=== PATIENT | female | born 1975 | race Caucasian/White ===

== ENCOUNTER 2019-07-22 10:16 | Emergency (ER) | payer BC, SELFPAY ==
[2019-07-22 10:21] VITALS: BP 176/104; PULSE 59; RESP 17; O2SAT 99; BMI 45.0
--- NOTE | 2019-07-22 13:21 | ED_ITS ---
Entered by Drea Camacho, acting as scribe for Giovanni Barber DO Jul 22, 2019 10:16 HPI - Chest Pain General: Chief Complaint: Chest Pain Stated Complaint: CHEST PRESSURE AND H/A, DIZZY Time Seen by Provider: 07/22/19 13:20 History of Present Illness: HPI narrative: 44-year-old female presents with complaints of chest pain. She has had an intermittently for the last several days is not affected by movement has been affected a little bit by eating. Denies any radiation of the pain into the jaw little bit into the shoulder no pain into the back she has no diaphoresis is some mild shortness of breath with activity. She cannot really take anything for it no known history of heart disease no history of diabetes or hyperlipidemia. She has a history of hypertension. MD complaint: chest pain Onset (ago): day(s) Timing of current episode: episodic Onset: after eating Pain radiation: left shoulder Severity: mild Quality: aching and sharp Relieving factors: nothing Exacerbating factors: nothing Associated symptoms: Deny abdominal pain, dyspnea, fever(s), nausea or vomiting Review of Systems Const: Denies: fever, chills, body aches, change in appetite, fatigue or malaise ENMT: Denies: throat pain, ear pain, nasal discharge or nasal congestion Card: Denies: chest pain, edema, shortness of breath on exertion or shortness of breath when lying down Resp: Denies: shortness of breath, productive cough or non-productive cough GI: Denies: abdominal pain, nausea, vomiting, vomiting blood, coffee grounds in vomit, diarrhea, constipation, bloating, blood in stool or black tarry stool : Denies: flank pain, difficulty urinating, painful urination, urinary frequency or urinary urgency Skin/Breast: Denies: rash or itching PFSH ED PFSH: Social History Smoking and tobacco status: current every day smoker Physical Exam Const: COMMON NORMALS: no apparent distress GENERAL APPEARANCE: cooperative and comfortable ORIENTATION/CONSCIOUSNESS: Yes awake, Yes oriented to person, Yes oriented to place and Yes oriented to time HENMT: COMMON NORMALS: normocephalic, head/scalp atraumatic, hearing grossly normal bilaterally, external ears normal, EAC's normal, TM's normal bilaterally, nasal mucous membranes and turbinates normal, moist oral mucous membranes and o ropharynx normal HEAD & SCALP: normocephalic and atraumatic NOSE: nasal mucous membranes and turbinates normal EXTERNAL EAR: Yes external ears normal EXTERNAL AUDITORY CANAL: EAC's normal TYMPANIC MEMBRANE: TM's normal bilaterally Eye: COMMON NORMALS: PERRL, EOMs intact bilaterally, conjunctivae normal and no scleral icterus CONJUNCTIVA: Yes conjunctivae normal PUPIL: Yes PERRL Neck/C-Spine: COMMON NORMALS: full ROM, no lymphadenopathy, supple and no JVD Lymph: LYMPHATIC: no lymphadenopathy noted and no lymphedema noted Resp: COMMON NORMALS: normal respiratory effort, no retractions, no use of accessory muscles and clear to auscultation bilaterally AUSCULTATION: clear to auscultation bilaterally Cardio: COMMON NORMALS: no JVD, regular rate, regular rhythm and no murmurs RATE: regular rate RHYTHM: regular rhythm GI: COMMON NORMALS: soft to palpation and no hepatosplenomegaly AUSCULTATION: Yes normoactive bowel sounds PALPATION: Yes soft, No tender, No guarding and Yes no hepatosplenomegaly Extremity: COMMON NORMALS: normal to inspection, normal capillary refill, no clubbing, cyanosis or edema, no calf tenderness and no pedal edema Neuro: SENSORIUM/ORIENTATION: Yes oriented to person, Yes oriented to place and Yes oriented to time Skin: COMMON NORMALS: no rashes or lesions noted GENERAL SKIN EXAM: no rashes or lesions noted Course ED course: Opponent negative x2. This seems to have a much more stronger association with eating very low suspicion on her description of it being cardiac if has worsening or change symptoms recheck I did not set her up for a stress test recommend that she follow-up with her primary care doctor return if has worsening problems. Vital Signs: Vital signs: Vital Signs Pulse Rate 57 L 07/22/19 17:57 Respiratory Rate 16 07/22/19 17:57 Blood Pressure 138/86 07/22/19 17:57 Pulse Oximetry 97 07/22/19 17:57 MDM - Chest Pain Lab Data: Labs: Lab Results 07/22/19 07/22/19 07/22/19 Range/Units 14:00 14:00 14:00 WBC 10.1 H (4.0-10.0) 10^3/ uL RBC 4.80 (4.1-5.3) 10^6/u L Hgb 14.2 (11.5-15.3) g/dL Hct 44.0 (37.0-47.0) % MCV 91.7 (81-99) fL MCH 29.6 (28.0-34.0) pg MCHC 32.3 (30.0-36.0) g/dL RDW 11.9 L (12.1-15.1) % Plt Count 324 (130-400) 10^3/c mm MPV 10.2 (7.4-10.4) fL Neut % (Auto) 56.8 % Lymph % (Auto) 31.7 % Schley % (Auto) 6.2 % Eos % (Auto) 4.3 % Baso % (Auto) 0.7 % Neut # (Auto) 5.7 (1.8-7.7) 10^3/u L Lymph # (Auto) 3.2 (0.8-4.8) 10^3/u L Schley # (Auto) 0.6 (0.2-0.9) 10^3/u L Eos # (Auto) 0.4 (0.0-0.8) 10^3/u L Baso # (Auto) 0.1 (0.0-0.1) 10^3/u L Nucleated RBC % (a uto) 0 % Nucleated RBCs # 0.0 /100WBC Sodium 136 (136-145) mmol/L Potassium 4.6 (3.5-5.1) mmol/L Chloride 100 (98-107) mmol/L Carbon Dioxide 26 (22-29) mmol/L Anion Gap 14.6 (5-19) BUN 12 (6-20) mg/dL Creatinine 0.8 (0.5-0.9) mg/dL GFR Calculation 77.2 L (90-130) mL/min Glucose 100 (65-115) mg/dL Calcium 9.6 (8.5-10.5) mg/dL Total Bilirubin 0.3 (0.15-1.2) mg/dL AST 18 (0-32) U/L ALT 18 (0-33) U/L Alkaline Phosphata se 79 (35-105) IU/L Troponin T Baselin e 8 (0-10) ng/mL Troponin T 120 Min [place] (0-10) ng/mL Delta Troponin T (0-10) ABS# Total Protein 7.3 (6.6-8.7) g/dL Albumin 4.2 (3.5-5.2) g/dL Globulin 3.1 (1.3-4.6) g/dL 07/22/19 Range/Units 16:28 WBC (4.0-10.0) 10^3/ uL RBC (4.1-5.3) 10^6/u L Hgb (11.5-15.3) g/dL Hct (37.0-47.0) % MCV (81-99) fL MCH (28.0-34.0) pg MCHC (30.0-36.0) g/dL RDW (12.1-15.1) % Plt Count (130-400) 10^3/c mm MPV (7.4-10.4) fL Neut % (Auto) % Lymph % (Auto) % Schley % (Auto) % Eos % (Auto) % Baso % (Auto) % Neut # (Auto) (1.8-7.7) 10^3/u L Lymph # (Auto) (0.8-4.8) 10^3/u L Schley # (Auto) (0.2-0.9) 10^3/u L Eos # (Auto) (0.0-0.8) 10^3/u L Baso # (Auto) (0.0-0.1) 10^3/u L Nucleated RBC % (a uto) % Nucleated RBCs # /100WBC Sodium (136-145) mmol/L Potassium (3.5-5.1) mmol/L Chloride (98-107) mmol/L Carbon Dioxide (22-29) mmol/L Anion Gap (5-19) BUN (6-20) mg/dL Creatinine (0.5-0.9) mg/dL GFR Calculation (90-130) mL/min Glucose (65-115) mg/dL Calcium (8.5-10.5) mg/dL Total Bilirubin (0.15-1.2) mg/dL AST (0-32) U/L ALT (0-33) U/L Alkaline Phosphata se (35-105) IU/L Troponin T Baselin e (0-10) ng/mL Troponin T 120 Min [place] 7.10 (0-10) ng/mL Delta Troponin T -0.90 L (0-10) ABS# Total Protein (6.6-8.7) g/dL Albumin (3.5-5.2) g/dL Globulin (1.3-4.6) g/dL Discharge Plan Discharge Patient Disposition: Home, Self-Care Clinical Impression: Atypical chest pain Condition: Stable Prescriptions: New omeprazole 20 mg capsule,delayed release(DR/EC) 20 mg PO DAILY Qty: 30 RF: 0 Held Pepcid 20 mg Tablet 20 mg PO BID PRN (Reason: Heartburn) RF: 0 Hold Instructions: Resume on 07/22/20. No Action tramadol 50 mg Tablet 100 mg PO TID RF: 0 duloxetine 60 mg Capsule,Delayed Release(Dr/Ec) 60 mg PO DAILY RF: 0 gabapentin 300 mg Tablet Extended Release 24 Hr 300 mg PO TID RF: 0 metoprolol tartrate 100 mg Tablet 100 mg PO BID RF: 0 Aleve 220 mg Tablet 220 mg PO Q8H PRN (Reason: Pain) RF: 0 Discharge Orders: Discharge Order (Routine); Ordered 07/22/19 Ordered By: Giovanni Barber Referrals: Deborah Araujo DO [Primary Care Provider] - Discharge Diet: As Directed Discharge Activity: Increase activity as tolerated Activity Restrictions/Additional Instructions: Case management will call to schedule stress test Discharge Date/Time: 07/22/19 17:58 Coding Level of Care Code ED Mine Inspector [employer] for Chg Fwd The documentation recorded by the Doug malcolm Bridget Annette, accurately reflects the service I personally performed and the decisions made by Elisabeth zarate Curtis L, DO Jul 22, 2019 10:16
--- NOTE | 2019-07-22 13:38 | ECG_ITS ---
Measurements Intervals [place] Rate: 51 P: 62 WI: 139 QRS: 40 QRSD: 95 T: 36 QT: 434 QTc: 401 SINUS BRADYCARDIA WITH SINUS ARRHYTHMIA LOW QRS VOLTAGE IN PRECORDIAL LEADS [QRS DEFLECTION < 1.0 mV IN CHEST LEADS] No previous ECG available for comparison Electronically Signed On 07-22-2019 17:25:30 FOOD AND BEVERAGE SERVICE MANAGER by Megan Barry M.D. [id number]
[2019-07-22 14:06] LABS: Basophils # 0.1 10^3/uL (0.0-0.1); Basophils % 0.7 %; Eosinophils # 0.4 10^3/uL (0.0-0.8); Eosinophils % 4.3 %; Hemoglobin 14.2 g/dL (11.5-15.3); Lymphocytes # 3.2 10^3/uL (0.8-4.8); Lymphocytes % 31.7 %; Mean Corpuscular HGB Conc 32.3 g/dL (30.0-36.0); Mean Corpuscular Hemoglobin 29.6 pg (28.0-34.0); Mean Corpuscular Volume 91.7 fL (81-99); Mean Platelet Volume 10.2 fL (7.4-10.4); Monocytes # 0.6 10^3/uL (0.2-0.9); Monocytes % 6.2 %; Neutrophils # 5.7 10^3/uL (1.8-7.7); Neutrophils % 56.8 %; Nucleated Red Blood Cells % 0 %; Platelet Count 324 10^3/cmm (130-400); Red Cell Distribution Width 11.9 % (12.1-15.1); White Blood Count 10.1 10^3/uL (4.0-10.0)
[2019-07-22 14:26] LABS: Alanine Aminotransferase 18 U/L (0-33); Albumin Level 4.2 g/dL (3.5-5.2); Alkaline Phosphatase 79 IU/L (35-105); Anion Gap 14.6 (5-19); Aspartate Amino Transferase 18 U/L (0-32); Blood Urea Nitrogen 12 mg/dL (6-20); Calcium 9.6 mg/dL (8.5-10.5); Carbon Dioxide 26 mmol/L (22-29); Chloride 100 mmol/L (98-107); Creatinine Clr Calc Pharmacy 116.6529; Globulin 3.1 g/dL (1.3-4.6); Glomerular Filtration Rate 77.2 mL/min (90-130); Glucose 100 mg/dL (65-115); Potassium 4.6 mmol/L (3.5-5.1); Sodium 136 mmol/L (136-145); Total Bilirubin 0.3 mg/dL (0.15-1.2); Total Protein 7.3 g/dL (6.6-8.7)
[2019-07-22 14:28] LABS: Troponin(5th) Baseline 8 ng/mL (0-10)
--- NOTE | 2019-07-22 16:43 | PC.NURSE ---
SECOND TROP DRAW
[2019-07-22 17:57] VITALS: BP 138/86; PULSE 57; RESP 16; O2SAT 97
--- NOTE | 2019-07-22 19:38 | ECG_ITS ---
Measurements Intervals [place] Rate: 46 P: 62 IA: 130 QRS: 44 QRSD: 75 T: 38 QT: 451 QTc: 395 SINUS BRADYCARDIA LOW QRS VOLTAGE IN PRECORDIAL LEADS [QRS DEFLECTION < 1.0 mV IN CHEST LEADS] No previous ECG available for comparison Electronically Signed On 07-22-2019 17:30:28 CHIEF PHARMACIST by Megan Barry M.D. [id number]
== END 2019-07-22 17:58 | disposition home or self-care (01) ==
PROVIDERS: Emergency Provider Family Medicine; Family Provider Family Medicine; PCP Family Medicine
DX: R07.89 Other chest pain (principal); I10 Essential (primary) hypertension; F17.200 Nicotine dependence, unspecified, uncomplicated
CPT/HCPCS: 36415; 80053; 84484; 85025; 93005; 99282; 99283

== ENCOUNTER 2020-01-18 20:00 | Outpatient (CLI) | payer BC, SELFPAY | END 2020-01-18 20:01 | disposition home or self-care (01) | LOC: SLEEP 01-19 09:19 | PROVIDERS: Family Provider Family Medicine; PCP Family Medicine; Visit Provider Family Medicine | DX: G47.33 Obstructive sleep apnea (adult) (pediatric) (principal) | CPT/HCPCS: 95810 ==

== ENCOUNTER 2020-02-23 20:00 | Outpatient (CLI) | payer BC, SELFPAY | END 2020-02-23 20:01 | disposition home or self-care (01) | LOC: SLEEP 02-24 09:00 | PROVIDERS: Family Provider Family Medicine; PCP Family Medicine; Visit Provider Family Medicine | DX: G47.33 Obstructive sleep apnea (adult) (pediatric) (principal) | CPT/HCPCS: 95811 ==

== ENCOUNTER → 2020-11-23 08:05 | Outpatient (BNVA) | payer BC, SELFPAY | PROVIDERS: Family Provider Family Medicine; PCP Family Medicine; Referring Provider Registered Nurse; Visit Provider Podiatrist Foot & Ankle Surgery | DX: M79.671 Pain in right foot (principal); M79.672 Pain in left foot; M20.21 Hallux rigidus, right foot; M20.22 Hallux rigidus, left foot; M21.6X1 Other acquired deformities of right foot; M21.6X2 Other acquired deformities of left foot | CPT/HCPCS: 73630 ==

== ENCOUNTER → 2021-01-30 11:38 | Outpatient (BNVA) | payer BC, SELFPAY | PROVIDERS: Family Provider Family Medicine; PCP Family Medicine; Visit Provider Podiatrist Foot & Ankle Surgery | DX: Z01.812 Encounter for preprocedural laboratory examination (principal); Z20.822 Contact with and (suspected) exposure to COVID-19 | CPT/HCPCS: 87635 ==

== ENCOUNTER 2021-02-03 06:27 | Day surgery (SDC) | payer BC, SELFPAY ==
[2021-02-02 12:51] VITALS: BMI 44.2
--- NOTE | 2021-02-03 | SCC_ITS ---
Procedure Done: Right first metatarsophalangeal joint fusion CPT 53610 1 second of fluoroscopic guidance, for a cumulative dose of 0.03 mGy, was provided to Dr. Palmer by the radiology department. C-arm images of the RIGHT foot were saved for the patient's permanent record. [facility]
[2021-02-03 07:00] VITALS: BP 142/101; PULSE 65; RESP 20; TEMP 36.2; O2SAT 100
[2021-02-03] MEDS: sodium chloride 0.9% 1,000 ML 30 ML IV (07:15)
--- NOTE | 2021-02-03 07:21 | ANES.PREANE2 ---
Pre-Anesthetic Assessment Pre-Anesthetic Assessment: Height/Weight: Height 1.66 m Weight 122.47 kg Temp Pulse Resp BP Pulse Ox 97.2 F L 65 20 H 142/101 100 02/03/21 07:00 02/03/21 07:00 02/03/21 07:00 02/03/21 07:00 02/03/21 07:00 Preop Diagnosis: Right hallux rigidus Proposed Procedure: Operation Date: 02/03/21 07:40 Proposed Procedures p Arthrodesis right first metatarsophalangeal joint 80031 54324 M21.6X1(Right) - Niels Palmer DPM Familial anesthetic complications: None Was Beta Dominic taken within 24 hours: N/A Was Clonidine taken within 24 hours: N/A Last intake: Intake Last Liquid Date 02/02/21 Last Liquid Time 21:00 Last Solid Date 02/02/21 Last Solid Time 18:00 Social: Social History: Tobacco and No alcohol Exam: Pre-Anes Outpt Exam: alert, oriented x 3, clear to auscultation bilaterally and regular rate & rhythm Airway: Cervical ROM: WNL MP: 4 Dentition: False Pulmonary: Pulmonary: Sleep apnea CV/HEM: CV/HEM: HTN Metabolic: Metabolic: Morbid obesity Anesthetic Plan: ASA status: 3 Anesthesia: MAC Risk of > 500 ml blood loss (7ml/kg in children): No Meds/Allergies Current Medications: Current Medications Generic Name Dose Route Start Last Admin Trade Name Freq PRN Reason Stop Dose Admin Sodium Chloride 1,000 mls @ 30 ml s/hr 02/03/21 06:45 02/03/21 07:15 Sodium Chloride 0.9% IV 02/04/21 06:44 30 mls/hr .Q24H ROBERT Administration PFSH Anesthesia PFSH: Social History Second hand smoke exposure: No Smoking risk assessment/counseling performed?: No Alcohol intake: never Desire information about alcohol rehabilitation?: No Counseling given: No Desire information about substance/drug rehabilitation?: No Counseling given: No Female Reproductive History: Date of last menstrual period: 01/14/21 Data Anesthesia Cardiac Studies: No Data to Display
--- NOTE | 2021-02-03 07:24 | P.HPUD_ITS ---
Surgery/Procedure H&P Update DATE OF PROCEDURE: February 03, 2021 DATE H&P PERFORMED: 02/03/21 H&P UPDATE INFORMATION: I have reviewed H&P completed within last 30 days, I have examined patient prior to procedure, No changes to prior documentation and H&P is in [facility] EMR on date indicated PREOP DIAGNOSIS: Right hallux rigidus PLANNED PROCEDURE: Operation Date: 02/03/21 07:40 Proposed Procedures p Arthrodesis right first metatarsophalangeal joint 64125 [id number] M21.6X1(Right) - Niels Palmer DPM
--- NOTE | 2021-02-03 07:25 | P.HP_ITS ---
Providers/Chief Complaint Primary Care Provider: Deborah Araujo DO Chief Complaint: Arthrodesis right first metatarsophalangeal joint. History of Present Illness 45 year old female patient here for treatment options for right foot pain. Patient states her pain affects her quality of life as it keeps her from enjoying her family and activities. She also states the pain wakes her up at night. She describes pain with short periods of ambulation. She has tried elevating, heat, ice therapy, Aspercreme cream, Bengay, message and compression and nothing really helps at all. Patient states, taking Tylenol takes the edge off, but nothing else. Patient denies any nausea, vomiting, fever, chills, chest pain or shortness of breath. Review of Systems General: Reports: 10 or more systems reviewed and unremarkable except in HPI and below Const: Denies: fever(s) or chills Eyes: Denies: change in vision Card: Denies: chest pain or palpitations Resp: Denies: dyspnea or productive cough GI: Denies: abdominal pain, nausea or vomiting : Denies: flank pain Musc: Reports: extremity pain, joint pain, joint stiffness, limited range of motion and deformity Skin/Breast: Reports: skin tenderness; Denies: rash Neuro: Reports: difficulty walking; Denies: numbness in extremities, sensory changes or frequent falls Psych: Denies: suicidal ideation Dino/Lymph: Denies: easy bruising Medications/Allergies Home Medications Medication Instructions Recorded Confirmed Last Taken Type duloxetine 60 mg PO DAILY 07/22/19 02/03/21 02/03/21 05:00 History famotidine [Pepcid] 20 mg PO BID PRN 07/22/19 02/03/21 02/03/21 History 0500 gabapentin 300 mg PO TID 07/22/19 02/03/21 02/02/21 21:00 History metoprolol tartrate 100 mg PO BID 07/22/19 02/03/21 02/03/21 05:00 History naproxen sodium [Aleve] 220 mg PO Q8H PRN 07/22/19 02/03/21 02/02/21 21:00 History tramadol 100 mg PO TID 07/22/19 02/03/21 02/03/21 05:00 History omeprazole 20 mg capsule,delayed 20 mg PO DAILY PRN cap 11/23/20 02/03/21 02/02/21 21:00 History release acetaminophen [Tylenol Extra 1,000 mg PO PRN PRN 02/02/21 02/03/21 Unknown History Strength] Allergies Allergy/AdvReac Type Severity Reaction Status Date / Time sulfamethoxazole Allergy ALGY-Hives Verified 02/02/21 12:48 [From Bactrim] trimethoprim [From Bactrim] Allergy ALGY-Hives Verified 02/02/21 12:48 PFSH PFSH: Social History Second hand smoke exposure: No Smoking risk assessment/counseling performed?: No Alcohol intake: never Desire information about alcohol rehabilitation?: No Counseling given: No Desire information about substance/drug rehabilitation?: No Counseling given: No Female Reproductive History: Date of last menstrual period: 01/14/21 Vital Signs Vitals Signs: Last Vital Signs Temp 97.2 F L 02/03/21 07:00 Pulse 65 02/03/21 07:00 Resp 20 H 02/03/21 07:00 BP 142/101 02/03/21 07:00 Pulse Ox 100 02/03/21 07:00 Weight: Weight last 48 hrs Weight 270 lb Physical Exam Narrative: EXAM NARRATIVE: Patient is alert and oriented ?3 and in no acute distress. The following is a focused bilateral lower extremity exam. VASCULAR: Dorsalis pedis and posterior tibial arteries palpable +2. Capillary refill time less than 3 seconds to the distal hallux bilaterally. Calf is supple and nontender proximally and distally. No pedal edema appreciated. Pedal hair growth present. NEUROLOGICAL: Epicritic and protopathic sensations grossly intact to the lower extremities. +2 Achilles tendon reflex noted bilaterally. Negative Tinel sign upon percussion of lower extremity nerves. DERMATOLOGICAL: Lower extremity skin is well-hydrated, normal texture and turgor. There are no open sores or lesions noted to the lower extremities. No erythema or ecchymosis present to the bilateral legs and feet. MUSCULOSKELETAL: Pain to palpation and with range of motion at the first metatarsophalangeal joint right greater than left. Right first metatarsophalangeal joint dorsiflexion is 10 degrees with osseous and range of motion, crepitus and pain. Left first metatarsal range of motion is 15 degrees of dorsiflexion with pain and osseous and range of motion. Ankle joint dorsiflexion is 10 degrees bilaterally. Pes planus foot type bilaterally. Muscle strength 5 out of 5 in all 3 cardinal planes to the bilateral foot and ankle. CARDIOVASCULAR: S1, S2, normal rate, normal rhythm. Dorsalis pedis and posterior tibial arteries palpable. LUNGS: Clear to auscltation, no use of acessory muscles, no crackles or wheezes. A&P Assessment and plan (1) Hallux rigidus, bilateral: Status: Acute (2) Right foot pain: Status: Acute Patient wishing to pursue surgical intervention would like to do this on February 03, 2021 after discussing joint salvage versus joint preserving surgical option she would like to pursue arthrodesis as a 1 and done type procedure she already does not have any motion and would ultimately just like to get rid of pain. Would require arthrodesis of the right first metatarsophalangeal joint can be done outpatient under MAC anesthesia. Risks include pain, bleeding, numbness, infection, failure to alleviate pain, hardware failure, hardware irritation, delayed union, malunion, nonunion, transfer pressure, transfer lesions and transfer pain need for further surgical intervention. Also risk for deep vein thrombosis, heart attack, stroke, pulmonary embolism and . Right first metatarsophalangeal joint arthrodesis, date of operation 01/03/2021, outpatient, MAC anesthesia, duration of procedure 60 Coding Level of Care Code Acute Blister Pack Operator for g Fwd Diagnoses Hallux rigidus, bilateral M20.21; M20.22 Right foot pain M79.671
[2021-02-03 07:30] LABS: OR HCG Qualitative Urine Negative (Negative)
--- NOTE | 2021-02-03 07:51 | P.OP_ITS ---
Operative Report Date of procedure: February 03, 2021 Pre-op Diagnosis: Right hallux rigidus Post-op diagnosis: same Post-op Findings: None Procedure Done: Right first metatarsophalangeal joint fusion CPT 46319 Implants: [place] Pathology: none sent Surgeon: Niels Palmer D.P.M. Anesthesia: MAC Estimated blood loss: Less than 5 mL Tourniquet time: 54 IV fluids: None Urine output: None Complications: None Findings: None Condition: stable Disposition: PACU Brief History: Patient has had a progression of pain in her right great toe joint and would like to discuss surgical intervention. She has failed at this point to get relief from supportive shoes, activity modifications, anti- inflammatories and stretching exercises. Discussed both joint destructive and joint preserving procedures ultimately she would like to have a 1 procedure only and not have any type of revisions in the future this would lead us to a fusion as her most reliable choice given her young age. She is agreeable to this would like to proceed with a fusion of her right Procedure: Under mild sedation the patient was brought to the operating room and placed on the operating table in supine position. Timeout was performed. Anesthesia was administered by the anesthesia service. Local anesthesia injected by myself total of 20 cc of 0.5% Marcaine plain and a right Maloney block fashion. Well-padded pneumatic tourniquet applied to the right ankle. Right lower extremity was scrubbed, prepped and draped utilizing normal aseptic technique. Right foot was wrapped with an Esmarch bandage and the tourniquet inflated to 250 mmHg. Attention was directed to the dorsal aspect of the right first metatarsophalangeal joint where a linear longitudinal incision was made medial and parallel to the extensor houses longus tendon. Dissection carried down through subcutaneous tissue to the layer of joint capsule and periosteum utilizing a combination of sharp and blunt technique. Care was taken to retract and preserve neurovascular and tendinous structures. Bleeders were ligated and cauterized as necessary. A linear periosteal incision and capsulotomy was performed in the head of the first metatarsal and base of the proximal phalanx were freed from their soft tissue attachments. Utilizing cone and cup reamers the head of the first metatarsal and base of the proximal phalanx were denuded of articular surface, flushed with saline and repaired for arthrodesis utilizing a fenestrating drill bit through subchondral plate. Hallux was positioned in a appropriate slight valgus and dorsiflexion and then fixated utilizing standard AO technique this was a [place] first metatarsophalangeal joint locking arthrodesis plate with 2.7 millimeter screws distally and 3.5 millimeter screws proximally. Excellent bony apposition and compression noted positioning confirmed in all 3 planes with intraoperative fluoroscopy noted to be excellent and anatomic for ideal ambulation postoperatively with an arthrodesis at this joint. Incision was flushed with saline solution and capsule and subcutaneous tissue closed with 3-0 Vicryl, Exparel infiltrated then skin closed with 4-0 nylon. Incision was dressed with Adaptic, sterile 4 x 4, Kerlix and Jesus wrap followed by a cam boot. Tourniquet was deflated and a prompt hyperemic response was noted to the distal digits of the right foot. Patient tolerated the procedure well and was transferred to the PACU with vital signs stable and vascular status intact. Following a period of postoperative monitoring she will be discharged home. She was given instructions with follow-up in my contact information on her discharge paperwork.
[2021-02-03 09:08] VITALS: BP 140/60; PULSE 69; RESP 20; TEMP 36.1; O2SAT 94
--- NOTE | 2021-02-03 09:11 | XR_ITS ---
WS: [id number] Right foot, 3 views, 02/03/2021 Clinical Data: post op Comparison: Right foot, 11/23/2020. Findings: The patient has had a fusion of the right first MTP joint with a plate and screws. There is a plantar spur and a small Achilles spur. XR/XR foot RT min 3V* [id number] Impression: Fusion of the right first MTP joint.
[2021-02-03 09:15] VITALS: BP 110/46; PULSE 72; RESP 17; TEMP 36.5; O2SAT 96
[2021-02-03 09:22] VITALS: BP 91/57; PULSE 71; RESP 16; TEMP 36.1; O2SAT 97
[2021-02-03 09:48] VITALS: BP 113/81; PULSE 62; RESP 18; TEMP 36.2; O2SAT 96
--- NOTE | 2021-02-03 16:01 | ANE.PACU2 ---
Inpatient post-anesthesia follow up: Airway intact: Yes Vital signs: Temperature 97.2 F Pulse Rate 62 Respiratory Rate 18 Blood Pressure 113/81 Pulse Oximetry 96 Oxygen Delivery Me thod Room Air Oxygen Flow Rate Fraction of Inspir ed Oxygen Hydration adequate: Yes Nausea and vomiting: No Pain level: 2 Mental status: Baseline
== END 2021-02-03 10:15 | disposition home or self-care (01) ==
PROVIDERS: PCP Family Medicine; Visit Provider Podiatrist Foot & Ankle Surgery
PROC: (CPT 28740; principal; 2021-02-03 07:40)
DX: M20.21 Hallux rigidus, right foot (principal); G47.30 Sleep apnea, unspecified; I10 Essential (primary) hypertension; E66.01 Morbid (severe) obesity due to excess calories; Z68.41 Body mass index [BMI] 40.0-44.9, adult
CPT/HCPCS: 28750; 73630; 76000; 84703; C1713; C9290; J0690; J2250; J2704; J3010; J3490; J7030

== ENCOUNTER → 2021-02-10 08:37 | Outpatient (BNVA) | payer BC, SELFPAY | PROVIDERS: PCP Family Medicine; Visit Provider Podiatrist Foot & Ankle Surgery | DX: M21.6X1 Other acquired deformities of right foot (principal); M21.6X2 Other acquired deformities of left foot; M20.21 Hallux rigidus, right foot; M20.22 Hallux rigidus, left foot | CPT/HCPCS: 73630 ==

== ENCOUNTER → 2021-02-16 13:58 | Outpatient (BNVA) | payer BC, SELFPAY | PROVIDERS: PCP Family Medicine; Visit Provider Podiatrist Foot & Ankle Surgery | DX: Z98.890 Other specified postprocedural states (principal) | CPT/HCPCS: 73630 ==

== ENCOUNTER → 2021-03-02 13:07 | Outpatient (BNVA) | payer BC, SELFPAY | PROVIDERS: PCP Family Medicine; Visit Provider Podiatrist Foot & Ankle Surgery | DX: Z98.890 Other specified postprocedural states (principal) | CPT/HCPCS: 73630 ==

== ENCOUNTER → 2021-03-16 12:56 | Outpatient (BNVA) | payer BC, SELFPAY | PROVIDERS: PCP Family Medicine; Visit Provider Podiatrist Foot & Ankle Surgery | DX: Z98.890 Other specified postprocedural states (principal); Z98.1 Arthrodesis status | CPT/HCPCS: 73630 ==

== ENCOUNTER → 2021-03-30 13:16 | Outpatient (BNVA) | payer BC, SELFPAY | PROVIDERS: PCP Family Medicine; Visit Provider Podiatrist Foot & Ankle Surgery | DX: Z98.890 Other specified postprocedural states (principal) | CPT/HCPCS: 73630 ==

== ENCOUNTER → 2021-05-04 14:40 | Outpatient (BNVA) | payer BC, SELFPAY | PROVIDERS: PCP Family Medicine; Visit Provider Podiatrist Foot & Ankle Surgery | DX: Z98.890 Other specified postprocedural states (principal) | CPT/HCPCS: 73630 ==

== ENCOUNTER → 2021-07-10 14:31 | Outpatient (BNVA) | payer BC, SELFPAY | PROVIDERS: PCP Family Medicine; Visit Provider Podiatrist Foot & Ankle Surgery | DX: Z98.890 Other specified postprocedural states (principal); Z48.89 Encounter for other specified surgical aftercare | CPT/HCPCS: 73630 ==

== ENCOUNTER 2022-06-06 16:03 | Outpatient (CLI) | payer BC, SELFPAY ==
[2022-06-08 15:14] LABS: Thyroglobulin AB <1 IU/mL (< or = 1); Thyroid Peroxidase Antobodies <1 IU/mL (<9)
[2022-06-13 11:47] LABS: Plasma Renin Activity LC/MS/MS 0.26 ng/mL/h (0.25-5.82)
== END 2022-06-06 16:04 | disposition home or self-care (01) ==
LOC: LAB 16:06
PROVIDERS: PCP Family Medicine; Visit Provider Internal Medicine
DX: E27.8 Other specified disorders of adrenal gland (principal); R59.1 Generalized enlarged lymph nodes
CPT/HCPCS: 82088; 84244; 86376; 86800

== ENCOUNTER 2022-06-08 09:34 | Outpatient (CLI) | payer BC, SELFPAY ==
[2022-06-08 10:43] LABS: Urine Creatinine 85 mg/dL (28-217)
[2022-06-08 10:56] LABS: Total Volume Urine 1600 ml
[2022-06-13 18:45] LABS: Calculated Total (E+NE) 90 mcg/24 h (26-121)
[2022-06-14 08:53] LABS: Free Cortisol Urine 14.7 mcg/24 h (4.0-50.0); Total Urine 1600 mL; Urine Creatinine 1.39 g/24 h (0.50-2.15)
== END 2022-06-08 09:35 | disposition home or self-care (01) ==
LOC: LAB 09:38
PROVIDERS: PCP Family Medicine; Visit Provider Internal Medicine
DX: E27.8 Other specified disorders of adrenal gland (principal); R59.1 Generalized enlarged lymph nodes
CPT/HCPCS: 82384; 82530; 82570

== ENCOUNTER → 2022-12-26 13:16 | Outpatient (BNVA) | payer BC, SELFPAY | PROVIDERS: PCP Family Medicine; Visit Provider Internal Medicine | DX: R07.9 Chest pain, unspecified (principal) | CPT/HCPCS: 93005 ==

== ENCOUNTER → 2024-01-31 12:31 | Outpatient (BNVA) | payer BC, SELFPAY | PROVIDERS: PCP Family Medicine; Visit Provider Internal Medicine | DX: R10.9 Unspecified abdominal pain (principal); I10 Essential (primary) hypertension; E27.8 Other specified disorders of adrenal gland | CPT/HCPCS: 80053; 82088; 84244 ==

== ENCOUNTER 2024-02-02 11:43 | Outpatient (CLI) | payer BC, SELFPAY ==
[2024-02-02 12:28] LABS: Urine Creatinine 60 mg/dL (28-217)
[2024-02-02 13:49] LABS: Total Volume Urine 2000 ml
[2024-02-06 18:13] LABS: Calculated Total (E+NE) 68 mcg/24 h (26-121)
[2024-02-07 08:54] LABS: Free Cortisol Urine 27.4 mcg/24 h (4.0-50.0); Total Urine 2000 mL; Urine Creatinine 1.19 g/24 h (0.50-2.15)
== END 2024-02-02 11:44 | disposition home or self-care (01) ==
PROVIDERS: PCP Family Medicine; Visit Provider Internal Medicine
DX: E27.8 Other specified disorders of adrenal gland (principal); R10.9 Unspecified abdominal pain; I10 Essential (primary) hypertension
CPT/HCPCS: 82384; 82530; 82570

== ENCOUNTER 2024-03-24 13:24 | Outpatient (CLI) | payer SELFPAY ==
--- NOTE | 2024-03-24 13:28 | MR_ITS ---
WS: [id number] MRI ADRENAL GLANDS WITH AND WITHOUT CONTRAST. COMPARISON: No similar studies. Prior CT from 05/20/2009 is reviewed. Multiplanar, multisequence imaging is performed with and without contrast. MultiHance 18 mL IV. LEFT adrenal gland: LEFT adrenal mass measures 2.3 x 2.6 x 1.9 cm. There is diffuse dropout of signal on the out of phase sequences suggesting this is a benign adenoma. There is mild enhancement as expe cted throughout the adenoma. No hyperintense uptake. RIGHT adrenal gland: Normal. Liver and spleen are normal size with no masses. Gallbladder has been surgically removed. Normal port al vein. Normal pancreas. No pancreatic duct dilatation. Subcentimeter bilateral renal cysts. Cortica l cyst posterior RIGHT kidney 3.5 mm. Cortical cyst upper pole LEFT kidney 10 mm. Normal aorta. Stomach is distended with fluid and food products. There is no ascites or adenopathy identified. No e nhancing masses at the aortic bifurcation. MR/MR adrenals wo/w con [id number] IMPRESSION: 1. LEFT adrenal adenoma measures 2.3 x 2.6 x 1.9 cm. No prior studies for [facility]. Adenoma is new since 2009 CT. 2. Small bilateral renal cysts. 3. Prior cholecystectomy. 4. Normal RIGHT adrenal gland.
[2024-03-24] MEDS: gadobenate dimeglumine 20 mL vial 18 ML IV (14:22)
== END 2024-03-24 13:25 | disposition home or self-care (01) ==
LOC: RAD 13:27
PROVIDERS: PCP Family Medicine; Visit Provider Internal Medicine
DX: D35.02 Benign neoplasm of left adrenal gland (principal); Z90.49 Acquired absence of other specified parts of digestive tract; Q61.02 Congenital multiple renal cysts
CPT/HCPCS: 74183